=== PATIENT | male | born 1985 | race Two or more races ===

== ENCOUNTER 2023-03-20 20:06 | Emergency (ER) | payer OTHER ==
[~2023-03-20] VITALS: Ht 175.3 cm; Wt 77.1 kg
[2023-03-20 20:14] VITALS: BP 156/107
--- NOTE | 2023-03-20 22:00 | NUR ---
pt left to [employer] in custody
== END 2023-03-20 22:04 ==
LOC: ER 20:07
DX: Z02.89 Encounter for other administrative examinations (principal)